=== PATIENT | male | born 1990 | race Caucasian/White ===

== ENCOUNTER 2017-08-17 13:07 | Inpatient (IN) | payer OTHER ==
[2017-08-17 13:25] LABS: ADD MAN DIFF? NO
[2017-08-17 13:30] LABS: BASOPHIL # 0.1 10^3/ul (0.0-0.1); BASOPHILS % 0.5 % (0.0-2.0); EOSINOPHILS # 0.1 10^3/ul (0.0-0.5); EOSINOPHILS % 0.9 % (0.0-7.0); HEMATOCRIT 46.6 % (42.0-52.0); HEMOGLOBIN 16.1 g/dl (14.0-18.0); LYMPHOCYTES # 2.5 10^3/ul (0.8-2.9); MEAN CORPUSCULAR HEMOGLOBIN 30.9 pg (29.0-33.0); MEAN CORPUSCULAR HGB CONC 34.5 g/dl (32.0-37.0); MEAN CORPUSCULAR VOLUME 89.4 fl (82.0-101.0); MEAN PLATELET VOLUME 10.1 fl (7.4-10.4); MONOCYTE # 0.7 10^3/ul (0.3-0.9); MONOCYTES % 6.3 % (0.0-11.0); NEUTROPHIL # 7.6 10^3/ul (1.6-7.5); NEUTROPHILS % 68.7 % (39.0-77.0); PLATELET COUNT 298 10^3/UL (140-415); RED BLOOD COUNT 5.21 10^6/ul (4.70-6.10); RED CELL DISTRIBUTION WIDTH 14.1 % (11.5-14.5)
[2017-08-17 13:48] LABS: ALANINE AMINOTRANSFERASE 27 IU/L (13-69); ALBUMIN 5.4 g/dl (3.3-4.9); ALBUMIN/GLOBULIN RATIO 1.45; ALKALINE PHOSPHATASE 121 IU/L (42-121); ANION GAP 23 (8-16); ASPARTATE AMINO TRANSFERASE 36 IU/L (15-46); BILIRUBIN,INDIRECT 0.6 mg/dl (0-1.1); BILIRUBIN,TOTAL 0.6 mg/dl (0.2-1.3); BLOOD UREA NITROGEN 19 mg/dl (7-20); CALCIUM 9.6 mg/dl (8.4-10.2); CARBON DIOXIDE 13 mmol/L (21-31); CHLORIDE 111 mmol/L (97-110); CREATININE 0.42 mg/dl (0.61-1.24); GLUCOSE 110 mg/dl (70-220); SODIUM 143 mmol/L (135-144); TOTAL PROTEIN 9.1 g/dl (6.1-8.1)
[2017-08-17 13:49] LABS: INR 1.07; PT RATIO 1.1
[2017-08-17 13:50] LABS: PARTIAL THROMBOPLASTIN TIME 44.2 Sec (25.0-35.0)
[2017-08-17] MEDS: SOD CHLORIDE 0.9% 1,000 ML IV ×3 (13:53→15:58)
[2017-08-17] MEDS: CEFEPIME 2GM/50 ML (PMX) 50 ML IVPB (13:53)
[2017-08-17 13:59] LABS: TROPONIN-I < 0.010 ng/ml (0.000-0.120)
[2017-08-17 14:14] LABS: LACTIC ACID 1.5 mmol/L (0.5-2.0)
[2017-08-17 14:23] LABS: ADD UMIC YES; UR ASCORBIC ACID NEGATIVE (NEGATIVE); UR BACTERIA MODERATE /HPF (NONE SEEN); UR BILIRUBIN (Dip) NEGATIVE (NEGATIVE); UR BLOOD (Dip) 1+ mg/dL (NEGATIVE); UR CLARITY CLOUDY (CLEAR); UR COLOR YELLOW (YELLOW); UR GLUCOSE (Dip) NEGATIVE (NEGATIVE); UR KETONES (Dip) NEGATIVE (NEGATIVE); UR LEUKOCYTE ESTERASE (Dip) 3+ Leu/ul (NEGATIVE); UR MUCUS FEW /HPF (NONE SEEN); UR NITRITE (Dip) NEGATIVE (NEGATIVE); UR RBC 1 /HPF (0-5); UR SPECIFIC GRAVITY (Dip) 1.003 (1.003-1.030); UR TOTAL PROTEIN (Dip) NEGATIVE (NEGATIVE); UR UROBILINOGEN (Dip) NEGATIVE (NEGATIVE); UR WBC 18 /HPF (0-5)
[2017-08-17] MEDS ORDERED: ONDANSETRON 4 MG INJ IV ×2 (15:30→16:30)
[2017-08-17] MEDS ORDERED: ACETAMINOPHEN 325 MG TAB PO ×2 (15:30→16:30)
[2017-08-17 15:51] LABS: LACTIC ACID 0.8 mmol/L (0.5-2.0)
[2017-08-17] MEDS ORDERED: BISACODYL 10 MG SUPP PR (16:30)
[2017-08-17] MEDS ORDERED: DIPHENHYDRAMINE 25 MG CAP PO (16:30)
[2017-08-17] MEDS ORDERED: NACL 0.9% 3 ML SYG IV (16:30)
[2017-08-17] MEDS ORDERED: AL HYDROX/MG HYDROX/SIMETH 30 ML CUP PO (16:30)
[2017-08-17] MEDS ORDERED: MAGNESIUM HYDROXIDE 30ML CUP PO (16:30)
[2017-08-17] MEDS ORDERED: ARTIFICIAL TEARS 15 ML OPH BOTH EYES (17:30)
[2017-08-17] MEDS: CEFTRIAXONE 1 GM/50 ML (PMX) 50 ML IVPB (17:37)
[2017-08-17] MEDS ORDERED: MIDODRINE 5 MG TAB PO (21:00)
[2017-08-17] MEDS: PROPYLENE GLYCOL/PEG 15 ML OPH BOTH EYES (21:36)
[2017-08-17] MEDS: DANTROLENE 25 MG CAP PO (21:36)
[2017-08-17] MEDS: BACLOFEN 10 MG TAB PO (21:37)
[2017-08-17] MEDS: FAMOTIDINE 20 MG TAB PO (21:37)
[2017-08-17] MEDS: SOD CHLORIDE 0.9% 250 ML IV (23:58)
[2017-08-18] MEDS: SOD CHLORIDE 0.9% 250 ML IV (00:20)
[2017-08-18] MEDS: MIDODRINE 5 MG TAB PO ×2 (00:20→13:31)
[2017-08-18] MEDS: CYCLOBENZAPRINE 10 MG TAB PO (05:39)
[2017-08-18 07:26] LABS: ADD MAN DIFF? NO
[2017-08-18 07:33] LABS: WHITE BLOOD COUNT 8.7 10^3/ul (4.8-10.8)
[2017-08-18 07:33] LABS: BASOPHIL # 0.1 10^3/ul (0.0-0.1); BASOPHILS % 0.6 % (0.0-2.0); EOSINOPHILS # 0.1 10^3/ul (0.0-0.5); EOSINOPHILS % 0.9 % (0.0-7.0); HEMATOCRIT 41.7 % (42.0-52.0); HEMOGLOBIN 14.2 g/dl (14.0-18.0); LYMPHOCYTES # 1.7 10^3/ul (0.8-2.9); LYMPHOCYTES % 19.7 % (15.0-51.0); MEAN CORPUSCULAR HEMOGLOBIN 30.4 pg (29.0-33.0); MEAN CORPUSCULAR HGB CONC 34.1 g/dl (32.0-37.0); MEAN CORPUSCULAR VOLUME 89.3 fl (82.0-101.0); MEAN PLATELET VOLUME 10.7 fl (7.4-10.4); MONOCYTE # 0.5 10^3/ul (0.3-0.9); MONOCYTES % 5.7 % (0.0-11.0); NEUTROPHIL # 6.3 10^3/ul (1.6-7.5); NEUTROPHILS % 72.5 % (39.0-77.0); PLATELET COUNT 250 10^3/UL (140-415); RED BLOOD COUNT 4.67 10^6/ul (4.70-6.10); RED CELL DISTRIBUTION WIDTH 14.4 % (11.5-14.5)
[2017-08-18 07:49] LABS: ALBUMIN 4.8 g/dl (3.3-4.9); ANION GAP 18 (8-16); BLOOD UREA NITROGEN 7 mg/dl (7-20); CALCIUM 9.1 mg/dl (8.4-10.2); CARBON DIOXIDE 14 mmol/L (21-31); CHLORIDE 118 mmol/L (97-110); CREATININE 0.35 mg/dl (0.61-1.24); GLUCOSE 80 mg/dl (70-220); PHOSPHORUS 3.2 mg/dl (2.5-4.9); POTASSIUM 3.5 mmol/L (3.5-5.1); SODIUM 146 mmol/L (135-144)
[2017-08-18] MEDS: DANTROLENE 25 MG CAP PO ×3 (09:49→21:33)
[2017-08-18] MEDS: PROPYLENE GLYCOL/PEG 15 ML OPH BOTH EYES ×2 (09:49→21:32)
[2017-08-18] MEDS: BACLOFEN 10 MG TAB PO ×3 (09:49→21:33)
[2017-08-18] MEDS: FAMOTIDINE 20 MG TAB PO ×2 (09:50→21:33)
[2017-08-18] MEDS: POTASSIUM CHLORIDE (SR) 20 MEQ TAB PO (09:50)
[2017-08-18 13:45] LABS: Arterial Base Excess -9.1 mmol/L (-3.0-3); Arterial Blood Gas Oxygen Sat 98.9 mmHG (95.0-98.0); Arterial COHb 0.3 % (0.0-3.0); Arterial Fraction of Oxyhgb 98.3 % (93.0-99.0); Arterial HCO3 12.6 mmol/L (22.0-26.0); Arterial MetHb 0.3 % (0.0-1.5); Arterial Total Hemglobin 15.1 g/dl (12.0-18.0); Arterial pCO2 19.7 mmhg (35-45); MODE VENT - PC; Site LB
[2017-08-18] MEDS: CEFTRIAXONE 1 GM/50 ML (PMX) 50 ML IVPB (16:47)
[2017-08-19] MEDS: MIDODRINE 5 MG TAB PO (02:06)
[2017-08-19 08:59] LABS: Allen Test ACCEPTAB; Arterial Base Excess -8.3 mmol/L (-3.0-3); Arterial COHb 0 % (0.0-3.0); Arterial Fraction of Oxyhgb 98.7 % (93.0-99.0); Arterial HCO3 15.1 mmol/L (22.0-26.0); Arterial MetHb 0.3 % (0.0-1.5); Arterial Total Hemglobin 16.4 g/dl (12.0-18.0); Arterial pCO2 27.1 mmhg (35-45); MODE VENT - PC; Site Left Radial
[2017-08-19] MEDS: PROPYLENE GLYCOL/PEG 15 ML OPH BOTH EYES ×5 (09:00→20:41)
[2017-08-19] MEDS: BACLOFEN 10 MG TAB PO ×3 (09:01→20:41)
[2017-08-19] MEDS: DANTROLENE 25 MG CAP PO ×3 (09:01→20:40)
[2017-08-19] MEDS: FAMOTIDINE 20 MG TAB PO ×2 (09:01→20:41)
[2017-08-19 09:02] LABS: ADD MAN DIFF? NO
[2017-08-19 09:13] LABS: BASOPHIL # 0.1 10^3/ul (0.0-0.1); BASOPHILS % 0.6 % (0.0-2.0); EOSINOPHILS # 0.2 10^3/ul (0.0-0.5); HEMATOCRIT 46.2 % (42.0-52.0); LYMPHOCYTES # 2.2 10^3/ul (0.8-2.9); LYMPHOCYTES % 12.5 % (15.0-51.0); MEAN CORPUSCULAR HEMOGLOBIN 31.3 pg (29.0-33.0); MEAN CORPUSCULAR HGB CONC 34.6 g/dl (32.0-37.0); MEAN CORPUSCULAR VOLUME 90.4 fl (82.0-101.0); MEAN PLATELET VOLUME 10.7 fl (7.4-10.4); MONOCYTE # 1.2 10^3/ul (0.3-0.9); MONOCYTES % 6.8 % (0.0-11.0); NEUTROPHIL # 13.5 10^3/ul (1.6-7.5); NEUTROPHILS % 78.4 % (39.0-77.0); PLATELET COUNT 297 10^3/UL (140-415); RED BLOOD COUNT 5.11 10^6/ul (4.70-6.10); RED CELL DISTRIBUTION WIDTH 14.4 % (11.5-14.5)
[2017-08-19 09:13] LABS: WHITE BLOOD COUNT 17.2 10^3/ul (4.8-10.8)
[2017-08-19 09:37] LABS: ALBUMIN 5.2 g/dl (3.3-4.9); ANION GAP 23 (8-16); BLOOD UREA NITROGEN 7 mg/dl (7-20); CALCIUM 9.6 mg/dl (8.4-10.2); CARBON DIOXIDE 14 mmol/L (21-31); CHLORIDE 112 mmol/L (97-110); CREATININE 0.29 mg/dl (0.61-1.24); GLUCOSE 99 mg/dl (70-220); MAGNESIUM 1.9 mg/dl (1.7-2.5); PHOSPHORUS 2.9 mg/dl (2.5-4.9); POTASSIUM 3.8 mmol/L (3.5-5.1); SODIUM 145 mmol/L (135-144)
[2017-08-19] MEDS: SOD CHLORIDE 0.9% 500 ML IV (11:33)
[2017-08-19] MEDS: LEVOFLOXACIN 750MG/D5W (PMX) 150 ML IVPB (11:34)
[2017-08-20 07:13] LABS: ADD MAN DIFF? NO; BASOPHIL # 0.1 10^3/ul (0.0-0.1); BASOPHILS % 0.8 % (0.0-2.0); EOSINOPHILS # 0.3 10^3/ul (0.0-0.5); EOSINOPHILS % 2.7 % (0.0-7.0); HEMATOCRIT 42.5 % (42.0-52.0); LYMPHOCYTES # 3.6 10^3/ul (0.8-2.9); LYMPHOCYTES % 31.9 % (15.0-51.0); MEAN CORPUSCULAR HEMOGLOBIN 31.3 pg (29.0-33.0); MEAN CORPUSCULAR HGB CONC 35.3 g/dl (32.0-37.0); MEAN CORPUSCULAR VOLUME 88.5 fl (82.0-101.0); MEAN PLATELET VOLUME 10.4 fl (7.4-10.4); MONOCYTES % 8.7 % (0.0-11.0); NEUTROPHIL # 6.1 10^3/ul (1.6-7.5); NEUTROPHILS % 55.2 % (39.0-77.0); PLATELET COUNT 252 10^3/UL (140-415); RED CELL DISTRIBUTION WIDTH 14.3 % (11.5-14.5)
[2017-08-20 07:13] LABS: WHITE BLOOD COUNT 11.1 10^3/ul (4.8-10.8)
[2017-08-20 07:41] LABS: ALBUMIN 4.7 g/dl (3.3-4.9); ANION GAP 21 (8-16); BLOOD UREA NITROGEN 9 mg/dl (7-20); CALCIUM 9.4 mg/dl (8.4-10.2); CARBON DIOXIDE 14 mmol/L (21-31); CHLORIDE 112 mmol/L (97-110); GLUCOSE 78 mg/dl (70-220); MAGNESIUM 1.8 mg/dl (1.7-2.5); PHOSPHORUS 3.6 mg/dl (2.5-4.9); POTASSIUM 3.2 mmol/L (3.5-5.1); SODIUM 144 mmol/L (135-144)
[2017-08-20] MEDS: POTASSIUM CHLORIDE (SR) 20 MEQ TAB PO (08:49)
[2017-08-20] MEDS: PROPYLENE GLYCOL/PEG 15 ML OPH BOTH EYES (09:00)
[2017-08-20 09:14] LABS: AADO2 Arterial 39.4 mmHg (7.0-24.0); Allen Test ACCEPTAB; Arterial Base Excess -7.9 mmol/L (-3.0-3); Arterial Blood Gas Oxygen Sat 98.8 mmHG (95.0-98.0); Arterial COHb 0.3 % (0.0-3.0); Arterial Fraction of Oxyhgb 98.2 % (93.0-99.0); Arterial HCO3 14.7 mmol/L (22.0-26.0); Arterial MetHb 0.3 % (0.0-1.5); Arterial Total Hemglobin 16.1 g/dl (12.0-18.0); Arterial pCO2 24.6 mmhg (35-45); MODE VENT - AC; Site Left Radial
[2017-08-20] MEDS: MAGNESIUM OXIDE 400 MG TAB PO (09:40)
[2017-08-20] MEDS: POTASSIUM CHLORIDE 20 MEQ POWDER FOR ORAL SOLN GTB (09:41)
[2017-08-20] MEDS: DANTROLENE 25 MG CAP PO ×2 (09:41→12:42)
[2017-08-20] MEDS: FAMOTIDINE 20 MG TAB PO (09:42)
[2017-08-20] MEDS: BACLOFEN 10 MG TAB PO ×2 (09:42→12:42)
[2017-08-20] MEDS: LEVOFLOXACIN 750MG/D5W (PMX) 150 ML IVPB (09:42)
[2017-08-20] MEDS ORDERED: POTASSIUM CHLORIDE (SR) 20 MEQ TAB PO (13:00)
== END 2017-08-20 17:17 | disposition home or self-care (01) | DRG 871 ==
LOC: E/R 13:07 → TEL 15:27
PROC: 5A1935Z Respiratory Ventilation, Less than 24 Consecutive Hours (ICD-10-PCS; principal; 2017-08-17)
DX: A41.9 Sepsis, unspecified organism (principal); G82.50 Quadriplegia, unspecified; N39.0 Urinary tract infection, site not specified; J96.10 Chronic respiratory failure, unspecified whether with hypoxia or hypercapnia; Z99.11 Dependence on respirator [ventilator] status; N20.1 Calculus of ureter; Z93.0 Tracheostomy status; I95.9 Hypotension, unspecified
CPT/HCPCS: 36415; 36600; 71045; 74176; 80053; 80069; 81001; 82803; 83605; 83735; 84484; 85025; 85610; 85730; 87040; 87081; 87086; 93005; 94002; 94003; 96374; 99291-25

== ENCOUNTER 2017-08-24 11:53 | Inpatient (IN) | payer OTHER ==
[2017-08-24 12:22] LABS: ADD MAN DIFF? NO
[2017-08-24 12:27] LABS: BASOPHIL # 0.1 10^3/ul (0.0-0.1); BASOPHILS % 0.9 % (0.0-2.0); EOSINOPHILS # 0.3 10^3/ul (0.0-0.5); EOSINOPHILS % 2.4 % (0.0-7.0); HEMATOCRIT 46.2 % (42.0-52.0); HEMOGLOBIN 16.8 g/dl (14.0-18.0); LYMPHOCYTES # 3.3 10^3/ul (0.8-2.9); LYMPHOCYTES % 26.7 % (15.0-51.0); MEAN CORPUSCULAR HGB CONC 36.4 g/dl (32.0-37.0); MEAN CORPUSCULAR VOLUME 85.2 fl (82.0-101.0); MEAN PLATELET VOLUME 10.4 fl (7.4-10.4); MONOCYTE # 0.9 10^3/ul (0.3-0.9); MONOCYTES % 6.9 % (0.0-11.0); NEUTROPHIL # 7.6 10^3/ul (1.6-7.5); NEUTROPHILS % 61.5 % (39.0-77.0); PLATELET COUNT 297 10^3/UL (140-415); RED BLOOD COUNT 5.42 10^6/ul (4.70-6.10); RED CELL DISTRIBUTION WIDTH 13.9 % (11.5-14.5)
[2017-08-24 12:27] LABS: WHITE BLOOD COUNT 12.3 10^3/ul (4.8-10.8)
[2017-08-24] MEDS: CEFEPIME 2GM/50 ML (PMX) 50 ML IVPB ×2 (12:35→22:38)
[2017-08-24] MEDS: SODIUM CHLORIDE 0.9% 1L BAG IV* (12:35)
[2017-08-24] MEDS: MIDODRINE 5 MG TAB PO ×3 (12:36→22:26)
[2017-08-24 12:48] LABS: PARTIAL THROMBOPLASTIN TIME 41.1 Sec (25.0-35.0)
[2017-08-24 12:49] LABS: ALANINE AMINOTRANSFERASE 19 IU/L (13-69); ALBUMIN 5.3 g/dl (3.3-4.9); ALBUMIN/GLOBULIN RATIO 1.55; ALKALINE PHOSPHATASE 121 IU/L (42-121); ANION GAP 22 (8-16); ASPARTATE AMINO TRANSFERASE 25 IU/L (15-46); BILIRUBIN,INDIRECT 0.2 mg/dl (0-1.1); BILIRUBIN,TOTAL 0.7 mg/dl (0.2-1.3); BLOOD UREA NITROGEN 12 mg/dl (7-20); CALCIUM 9.8 mg/dl (8.4-10.2); CARBON DIOXIDE 14 mmol/L (21-31); CHLORIDE 108 mmol/L (97-110); CREATININE 0.32 mg/dl (0.61-1.24); GLUCOSE 99 mg/dl (70-220); POTASSIUM 3.1 mmol/L (3.5-5.1); SODIUM 141 mmol/L (135-144); TOTAL PROTEIN 8.7 g/dl (6.1-8.1)
[2017-08-24 12:50] LABS: LACTIC ACID 1.2 mmol/L (0.5-2.0)
[2017-08-24 12:51] LABS: INR 1.08; PROTIME 14.1 Sec (11.9-14.9); PT RATIO 1.1
[2017-08-24 12:53] LABS: ADD UMIC YES; UR AMORPHOUS CRYSTAL FEW /HPF (NONE SEEN); UR ASCORBIC ACID NEGATIVE (NEGATIVE); UR BACTERIA FEW /HPF (NONE SEEN); UR BILIRUBIN (Dip) NEGATIVE (NEGATIVE); UR BLOOD (Dip) 2+ mg/dL (NEGATIVE); UR CLARITY CLOUDY (CLEAR); UR COLOR YELLOW (YELLOW); UR GLUCOSE (Dip) NEGATIVE (NEGATIVE); UR KETONES (Dip) 1+ mg/dL (NEGATIVE); UR LEUKOCYTE ESTERASE (Dip) 3+ Leu/ul (NEGATIVE); UR MUCUS FEW /HPF (NONE SEEN); UR NITRITE (Dip) NEGATIVE (NEGATIVE); UR RBC 8 /HPF (0-5); UR SPECIFIC GRAVITY (Dip) 1.004 (1.003-1.030); UR SQUAMOUS EPITHELIAL CELL FEW /HPF (FEW); UR TOTAL PROTEIN (Dip) 1+ mg/dl (NEGATIVE); UR UROBILINOGEN (Dip) NEGATIVE (NEGATIVE); UR WBC 12 /HPF (0-5)
[2017-08-24 13:00] LABS: TROPONIN-I < 0.010 ng/ml (0.000-0.120)
[2017-08-24] MEDS: LIDOCAINE 1% (MPF) 5 ML VIAL SC (13:50)
[2017-08-24 14:20] LABS: LACTIC ACID 2.2 mmol/L (0.5-2.0)
[2017-08-24] MEDS ORDERED: ONDANSETRON 4 MG INJ IV (14:30)
[2017-08-24] MEDS ORDERED: ACETAMINOPHEN 325 MG TAB PO ×2 (14:30→15:00)
[2017-08-24] MEDS ORDERED: HYDROCODONE/APAP (5/325) TAB PO ×2 (15:00)
[2017-08-24] MEDS ORDERED: morphine 2 MG INJ IV (15:00)
[2017-08-24] MEDS ORDERED: ACETAMINOPHEN 650 MG SUPP PR (15:00)
[2017-08-24] MEDS ORDERED: MAGNESIUM HYDROXIDE 30ML CUP PO ×2 (15:00)
[2017-08-24] MEDS ORDERED: BISACODYL 10 MG SUPP PR ×2 (15:00)
[2017-08-24] MEDS ORDERED: NACL 0.9% 3 ML SYG IV (15:00)
[2017-08-24] MEDS ORDERED: DOCUSATE SODIUM 100 MG CAP PO (15:00)
[2017-08-24] MEDS: POTASSIUM CHLORIDE 100 ML IVPB (15:45)
[2017-08-24] MEDS ORDERED: ARTIFICIAL TEARS 15 ML OPH RIGHT EYE (16:00)
[2017-08-24 16:27] LABS: LACTIC ACID 0.8 mmol/L (0.5-2.0)
[2017-08-24] MEDS: SOD CHLORIDE 0.9% 1,000 ML IV (17:16)
[2017-08-24] MEDS: SOD CHLORIDE 0.9% 100 ML IV (19:05)
[2017-08-24] MEDS: DANTROLENE 25 MG CAP PO (22:23)
[2017-08-24] MEDS: FAMOTIDINE 20 MG TAB PO (22:26)
[2017-08-24] MEDS: BACLOFEN 10 MG TAB PO (22:26)
[2017-08-24] MEDS: PROPYLENE GLYCOL/PEG 15 ML OPH BOTH EYES (22:38)
[2017-08-25 09:02] LABS: ADD MAN DIFF? NO
[2017-08-25] MEDS: DANTROLENE 25 MG CAP PO ×3 (09:07→21:21)
[2017-08-25] MEDS: CEFEPIME 2GM/50 ML (PMX) 50 ML IVPB (09:07)
[2017-08-25] MEDS: ONDANSETRON 4 MG INJ IV (09:08)
[2017-08-25] MEDS: BACLOFEN 10 MG TAB PO ×3 (09:08→21:21)
[2017-08-25] MEDS: MIDODRINE 5 MG TAB PO ×3 (09:08→21:43)
[2017-08-25] MEDS: FAMOTIDINE 20 MG TAB PO ×2 (09:08→21:21)
[2017-08-25] MEDS: PROPYLENE GLYCOL/PEG 15 ML OPH BOTH EYES ×2 (09:09→21:22)
[2017-08-25 09:10] LABS: BASOPHIL # 0.1 10^3/ul (0.0-0.1); BASOPHILS % 0.5 % (0.0-2.0); EOSINOPHILS # 0.3 10^3/ul (0.0-0.5); EOSINOPHILS % 2.3 % (0.0-7.0); HEMATOCRIT 41.3 % (42.0-52.0); HEMOGLOBIN 14.8 g/dl (14.0-18.0); LYMPHOCYTES # 2.9 10^3/ul (0.8-2.9); LYMPHOCYTES % 21.6 % (15.0-51.0); MEAN CORPUSCULAR HGB CONC 35.8 g/dl (32.0-37.0); MEAN CORPUSCULAR VOLUME 83.8 fl (82.0-101.0); MEAN PLATELET VOLUME 10.3 fl (7.4-10.4); MONOCYTES % 7.2 % (0.0-11.0); NEUTROPHIL # 8.9 10^3/ul (1.6-7.5); NEUTROPHILS % 67.2 % (39.0-77.0); PLATELET COUNT 253 10^3/UL (140-415); RED BLOOD COUNT 4.93 10^6/ul (4.70-6.10); RED CELL DISTRIBUTION WIDTH 13.9 % (11.5-14.5)
[2017-08-25 09:10] LABS: WHITE BLOOD COUNT 13.2 10^3/ul (4.8-10.8)
[2017-08-25 11:07] LABS: ALANINE AMINOTRANSFERASE 23 IU/L (13-69); ALBUMIN 4.7 g/dl (3.3-4.9); ALKALINE PHOSPHATASE 101 IU/L (42-121); ANION GAP 20 (8-16); ASPARTATE AMINO TRANSFERASE 20 IU/L (15-46); BILIRUBIN,INDIRECT 0.2 mg/dl (0-1.1); BILIRUBIN,TOTAL 0.4 mg/dl (0.2-1.3); BLOOD UREA NITROGEN 6 mg/dl (7-20); CALCIUM 9.6 mg/dl (8.4-10.2); CARBON DIOXIDE 13 mmol/L (21-31); CHLORIDE 114 mmol/L (97-110); CHOLESTEROL 138 mg/dl (100-200); CREATININE 0.25 mg/dl (0.61-1.24); GLUCOSE 89 mg/dl (70-220); HDL CHOLESTEROL 45 mg/dl (30-63); LDL CHOLESTEROL,CALCULATED 70 mg/dl; MAGNESIUM 1.5 mg/dl (1.7-2.5); POTASSIUM 3.1 mmol/L (3.5-5.1); SODIUM 144 mmol/L (135-144); TOTAL PROTEIN 7.3 g/dl (6.1-8.1); TRIGLYCERIDES 117 mg/dl (0-149)
[2017-08-25 11:20] LABS: FREE THYROXINE INDEX (Calc) 4.69 ug/ml (0.65-3.89); T3 UPTAKE 35.5 % (23.5-40.5); T4 (THYROXINE) 13.2 ug/dl (5.5-11.0)
[2017-08-25] MEDS: POTASSIUM CHLORIDE (SR) 20 MEQ TAB PO ×2 (13:45→21:22)
[2017-08-25] MEDS: ZYVOX 600 MG TAB PO ×2 (16:59→23:05)
[2017-08-25] MEDS: FOSFOMYCIN 3 GM PACKET PO (16:59)
[2017-08-25] MEDS: SOD CHLORIDE 0.9% 100 ML (18:40)
[2017-08-26] MEDS: AL HYDROX/MG HYDROX/SIMETH 30 ML CUP PO (04:10)
[2017-08-26 06:29] LABS: ADD MAN DIFF? NO
[2017-08-26 06:36] LABS: WHITE BLOOD COUNT 14.4 10^3/ul (4.8-10.8)
[2017-08-26 06:36] LABS: BASOPHIL # 0.1 10^3/ul (0.0-0.1); BASOPHILS % 0.7 % (0.0-2.0); EOSINOPHILS # 0.3 10^3/ul (0.0-0.5); EOSINOPHILS % 1.8 % (0.0-7.0); HEMATOCRIT 41.6 % (42.0-52.0); HEMOGLOBIN 14.8 g/dl (14.0-18.0); LYMPHOCYTES # 4.1 10^3/ul (0.8-2.9); LYMPHOCYTES % 28.5 % (15.0-51.0); MEAN CORPUSCULAR HEMOGLOBIN 30.2 pg (29.0-33.0); MEAN CORPUSCULAR HGB CONC 35.6 g/dl (32.0-37.0); MEAN CORPUSCULAR VOLUME 84.9 fl (82.0-101.0); MEAN PLATELET VOLUME 10.7 fl (7.4-10.4); MONOCYTES % 6.9 % (0.0-11.0); NEUTROPHIL # 8.8 10^3/ul (1.6-7.5); NEUTROPHILS % 60.9 % (39.0-77.0); PLATELET COUNT 295 10^3/UL (140-415); RED CELL DISTRIBUTION WIDTH 14.5 % (11.5-14.5)
[2017-08-26 06:53] LABS: ANION GAP 17 (8-16); BLOOD UREA NITROGEN 6 mg/dl (7-20); CALCIUM 9.7 mg/dl (8.4-10.2); CARBON DIOXIDE 18 mmol/L (21-31); CHLORIDE 111 mmol/L (97-110); CREATININE 0.29 mg/dl (0.61-1.24); GLUCOSE 102 mg/dl (70-220); POTASSIUM 3.8 mmol/L (3.5-5.1); SODIUM 142 mmol/L (135-144)
[2017-08-26] MEDS: DANTROLENE 25 MG CAP PO ×3 (08:12→21:08)
[2017-08-26] MEDS: MIDODRINE 5 MG TAB PO ×2 (08:12→17:11)
[2017-08-26] MEDS: BACLOFEN 10 MG TAB PO ×3 (08:12→21:08)
[2017-08-26] MEDS: ZYVOX 600 MG TAB PO ×2 (08:13→21:08)
[2017-08-26] MEDS: FAMOTIDINE 20 MG TAB PO ×2 (08:13→21:08)
[2017-08-26] MEDS: SOD CHLORIDE 0.9% 1,000 ML IV (08:51)
[2017-08-26] MEDS: PROPYLENE GLYCOL/PEG 15 ML OPH BOTH EYES ×2 (08:51→21:08)
[2017-08-26] MEDS: CASPOFUNGIN 70 MG in SOD CHLORIDE 0.9% 250 ML IVPB (21:07)
[2017-08-27] MEDS: MIDODRINE 5 MG TAB PO ×4 (05:14→21:28)
[2017-08-27 06:54] LABS: ADD MAN DIFF? NO
[2017-08-27 07:06] LABS: ABNORMAL IP MESSAGE 1; BASOPHIL # 0.2 10^3/ul (0.0-0.1); EOSINOPHILS # 0.3 10^3/ul (0.0-0.5); EOSINOPHILS % 1.9 % (0.0-7.0); HEMATOCRIT 43.6 % (42.0-52.0); HEMOGLOBIN 15.1 g/dl (14.0-18.0); LYMPHOCYTES # 5.5 10^3/ul (0.8-2.9); LYMPHOCYTES % 36.8 % (15.0-51.0); MEAN CORPUSCULAR HEMOGLOBIN 30.4 pg (29.0-33.0); MEAN CORPUSCULAR HGB CONC 34.6 g/dl (32.0-37.0); MEAN CORPUSCULAR VOLUME 87.9 fl (82.0-101.0); MEAN PLATELET VOLUME 10.9 fl (7.4-10.4); MONOCYTE # 1.4 10^3/ul (0.3-0.9); MONOCYTES % 9.6 % (0.0-11.0); NEUTROPHIL # 7.4 10^3/ul (1.6-7.5); NEUTROPHILS % 49.5 % (39.0-77.0); PLATELET COUNT 286 10^3/UL (140-415); POSITIVE DIFF @See below; RED BLOOD COUNT 4.96 10^6/ul (4.70-6.10); RED CELL DISTRIBUTION WIDTH 14.9 % (11.5-14.5)
[2017-08-27 07:23] LABS: ANION GAP 17 (8-16); BLOOD UREA NITROGEN 9 mg/dl (7-20); CALCIUM 9.7 mg/dl (8.4-10.2); CARBON DIOXIDE 20 mmol/L (21-31); CHLORIDE 108 mmol/L (97-110); CREATININE 0.41 mg/dl (0.61-1.24); GLUCOSE 110 mg/dl (70-220); POTASSIUM 3.3 mmol/L (3.5-5.1); SODIUM 142 mmol/L (135-144)
[2017-08-27] MEDS: DANTROLENE 25 MG CAP PO ×3 (08:36→21:21)
[2017-08-27] MEDS: BACLOFEN 10 MG TAB PO ×3 (08:36→21:22)
[2017-08-27] MEDS: ZYVOX 600 MG TAB PO ×2 (08:37→21:28)
[2017-08-27] MEDS: FAMOTIDINE 20 MG TAB PO ×2 (08:38→21:22)
[2017-08-27] MEDS: PROPYLENE GLYCOL/PEG 15 ML OPH BOTH EYES ×2 (08:38→21:40)
[2017-08-27] MEDS: POTASSIUM CHLORIDE 20 MEQ POWDER FOR ORAL SOLN PO (12:58)
[2017-08-27] MEDS: CASPOFUNGIN 50 MG in SOD CHLORIDE 0.9% 250 ML IVPB (21:40)
[2017-08-28] MEDS: MIDODRINE 5 MG TAB PO ×3 (07:43→21:14)
[2017-08-28] MEDS: PROPYLENE GLYCOL/PEG 15 ML OPH BOTH EYES ×2 (08:36→21:00)
[2017-08-28] MEDS: DANTROLENE 25 MG CAP PO ×3 (08:36→21:13)
[2017-08-28] MEDS: BACLOFEN 10 MG TAB PO ×3 (08:37→21:15)
[2017-08-28] MEDS: ZYVOX 600 MG TAB PO (08:37)
[2017-08-28] MEDS: FAMOTIDINE 20 MG TAB PO ×2 (08:37→21:14)
[2017-08-28 09:08] LABS: ADD MAN DIFF? NO
[2017-08-28 09:20] LABS: BASOPHIL # 0.1 10^3/ul (0.0-0.1); BASOPHILS % 0.5 % (0.0-2.0); EOSINOPHILS # 0.4 10^3/ul (0.0-0.5); EOSINOPHILS % 1.8 % (0.0-7.0); HEMATOCRIT 43.2 % (42.0-52.0); LYMPHOCYTES # 3.8 10^3/ul (0.8-2.9); LYMPHOCYTES % 18.5 % (15.0-51.0); MEAN CORPUSCULAR HEMOGLOBIN 30.1 pg (29.0-33.0); MEAN CORPUSCULAR HGB CONC 34.7 g/dl (32.0-37.0); MEAN CORPUSCULAR VOLUME 86.6 fl (82.0-101.0); MEAN PLATELET VOLUME 11.3 fl (7.4-10.4); MONOCYTE # 1.4 10^3/ul (0.3-0.9); MONOCYTES % 6.9 % (0.0-11.0); NEUTROPHIL # 14.8 10^3/ul (1.6-7.5); NEUTROPHILS % 71.5 % (39.0-77.0); PLATELET COUNT 252 10^3/UL (140-415); RED BLOOD COUNT 4.99 10^6/ul (4.70-6.10); RED CELL DISTRIBUTION WIDTH 14.9 % (11.5-14.5)
[2017-08-28 09:20] LABS: WHITE BLOOD COUNT 20.8 10^3/ul (4.8-10.8)
[2017-08-28 09:42] LABS: ANION GAP 19 (8-16); BLOOD UREA NITROGEN 14 mg/dl (7-20); CALCIUM 9.5 mg/dl (8.4-10.2); CARBON DIOXIDE 19 mmol/L (21-31); CHLORIDE 107 mmol/L (97-110); CREATININE 0.37 mg/dl (0.61-1.24); GLUCOSE 87 mg/dl (70-220); POTASSIUM 3.3 mmol/L (3.5-5.1); SODIUM 142 mmol/L (135-144)
[2017-08-28] MEDS: AMPICILLIN/SULB 1.5GM/NS (PMX) 50 ML IVPB ×2 (17:00→23:07)
[2017-08-28] MEDS: SOD CHLORIDE 0.9% 1,000 ML IV (20:36)
[2017-08-28] MEDS: CASPOFUNGIN 50 MG in SOD CHLORIDE 0.9% 250 ML IVPB (21:13)
[2017-08-29] MEDS: AMPICILLIN/SULB 1.5GM/NS (PMX) 50 ML IVPB ×2 (05:22→14:31)
[2017-08-29 06:55] LABS: ADD MAN DIFF? NO
[2017-08-29 06:58] LABS: BASOPHIL # 0.1 10^3/ul (0.0-0.1); BASOPHILS % 0.7 % (0.0-2.0); EOSINOPHILS # 0.5 10^3/ul (0.0-0.5); EOSINOPHILS % 4.2 % (0.0-7.0); HEMATOCRIT 40.2 % (42.0-52.0); HEMOGLOBIN 13.7 g/dl (14.0-18.0); LYMPHOCYTES # 4.5 10^3/ul (0.8-2.9); LYMPHOCYTES % 36.1 % (15.0-51.0); MEAN CORPUSCULAR HGB CONC 34.1 g/dl (32.0-37.0); MEAN PLATELET VOLUME 10.8 fl (7.4-10.4); MONOCYTE # 0.9 10^3/ul (0.3-0.9); MONOCYTES % 7.3 % (0.0-11.0); NEUTROPHIL # 6.3 10^3/ul (1.6-7.5); NEUTROPHILS % 50.7 % (39.0-77.0); PLATELET COUNT 215 10^3/UL (140-415); RED BLOOD COUNT 4.57 10^6/ul (4.70-6.10)
[2017-08-29 06:58] LABS: WHITE BLOOD COUNT 12.5 10^3/ul (4.8-10.8)
[2017-08-29 07:51] LABS: ANION GAP 14 (8-16); BLOOD UREA NITROGEN 9 mg/dl (7-20); CALCIUM 9.1 mg/dl (8.4-10.2); CARBON DIOXIDE 21 mmol/L (21-31); CHLORIDE 113 mmol/L (97-110); GLUCOSE 78 mg/dl (70-220); SODIUM 145 mmol/L (135-144)
[2017-08-29 08:02] LABS: POTASSIUM 2.8 mmol/L (3.5-5.1)
[2017-08-29] MEDS: PROPYLENE GLYCOL/PEG 15 ML OPH BOTH EYES (08:57)
[2017-08-29] MEDS: DANTROLENE 25 MG CAP PO ×2 (08:58→12:36)
[2017-08-29] MEDS: FAMOTIDINE 20 MG TAB PO (08:58)
[2017-08-29] MEDS: BACLOFEN 10 MG TAB PO ×2 (08:58→12:36)
[2017-08-29] MEDS: MIDODRINE 5 MG TAB PO ×2 (08:59→12:37)
[2017-08-29] MEDS: POTASSIUM CHLORIDE 20 MEQ POWDER FOR ORAL SOLN GTB (11:00)
[2017-08-29] MEDS: POTASSIUM CHLORIDE 50 ML IVPB ×2 (12:29→14:31)
== END 2017-08-29 19:00 | DRG 870 ==
LOC: E/R 11:53 → TEL 14:10
PROC: 5A1955Z Respiratory Ventilation, Greater than 96 Consecutive Hours (ICD-10-PCS; principal; 2017-08-24)
PROC: 02HV33Z Insertion of Infusion Device into Superior Vena Cava, Percutaneous Approach (ICD-10-PCS; 2017-08-24)
PROC: B548ZZA Ultrasonography of Superior Vena Cava, Guidance (ICD-10-PCS; 2017-08-24)
DX: A41.9 Sepsis, unspecified organism (principal); G82.50 Quadriplegia, unspecified; J18.9 Pneumonia, unspecified organism; N39.0 Urinary tract infection, site not specified; J96.10 Chronic respiratory failure, unspecified whether with hypoxia or hypercapnia; Z99.11 Dependence on respirator [ventilator] status; Z93.6 Other artificial openings of urinary tract status; Z93.1 Gastrostomy status; N31.9 Neuromuscular dysfunction of bladder, unspecified; I95.1 Orthostatic hypotension; E87.6 Hypokalemia; D64.9 Anemia, unspecified; M62.838 Other muscle spasm; B95.2 Enterococcus as the cause of diseases classified elsewhere; Z87.442 Personal history of urinary calculi
CPT/HCPCS: 36415; 36569; 71045; 76937; 80048; 80053; 80061; 81001; 83036; 83605; 83735; 84100; 84436; 84479; 84484; 85025; 85610; 85730; 87040; 87086; 93005; 94002; 94003; 96365; 96366; 99291-25